=== PATIENT | male | born 1930 | race Caucasian/White ===

== ENCOUNTER → 2017-02-12 | Outpatient (CLI) | payer OTHER ==
[~2017-02-12] MED LIST: AMLO5TAB2 PO; BRIM0.2S2 OP; BRIN1SUS EACHEYE; DICL1GEL26 TOP; LATA0.00 EACHEYE; LORA1TAB12 PO; MEC25T PO; METR1GEL5 TOP; PRAV20TA3 PO; TERA2CAP45 PO; TRAM50TA2 PO; WARF7.5T20 PO
[2017-02-12 09:57] LABS: Urine RBC None Seen /hpf (0 - 3)
[2017-02-12 10:10] LABS: Urine Bilirubin Negative (Negative); Urine Blood Negative /uL (Negative); Urine Color Yellow (Yellow); Urine Glucose Normal (Normal); Urine Ketone Negative (Negative); Urine Nitrite Negative (Negative); Urine Squamous Epithelial Cell FEW /hpf (<5); Urine Urobilinogen Normal (Negative)
[2017-02-12 10:23] LABS: Basophils # (auto) 0 uL; Basophils % (auto) 0.5 % (0.0-2.0); Eosinophils # (auto) 0.3 uL; Eosinophils % (auto) 6.9 % (0.0-7.0); Hematocrit 41.2 % (41.0-53.0); Hemoglobin 13.5 g/dL (13.5-17.5); Lymphocytes # (auto) 1.1 uL; Lymphocytes % (auto) 27.6 % (10.0-50.0); Mean Corpuscular Hemoglobin 30.4 pg (28.0-32.0); Mean Corpuscular Hgb Conc. 32.9 g/dL (32.0-36.0); Mean Corpuscular Volume 92.4 fL (80.0-100.0); Mean Platelet Volume 8.1 fL (7.4-10.4); Monocytes # (auto) 0.3 uL; Monocytes % (auto) 7.5 % (0.0-12.0); Neutrophils # (auto) 2.3 uL; Neutrophils % (auto) 57.5 % (37.0-80.0); Platelet Count (auto) 220 10^3/uL (140-450); Red Cell Distribution Width 14.4 % (11.6-16.0)
[2017-02-12 10:38] LABS: Albumin 3.7 g/dL (3.4-5.0); BUN/Creatinine Ratio 19.6; Bilirubin, Total 0.7 mg/dL (0.2-1.0); Calcium 9.2 mg/dL (8.5-10.1); Potassium 4.3 mmol/L (3.5-5.1); Total Protein 6.9 g/dL (6.4-8.2)
== END | disposition home or self-care (01) ==
LOC: LAB 09:20
PROVIDERS: ATTEND Internal Medicine
DX: E55.9 Vitamin D deficiency, unspecified (principal); Z00.00 Encounter for general adult medical examination without abnormal findings
CPT/HCPCS: 36415; 80053; 80061; 81001; 82306; 83036; 84153; 85025

== ENCOUNTER → 2017-09-30 | Outpatient (CLI) | payer OTHER ==
[~2017-09-30] MED LIST changes: -LATA0.00 EACHEYE; +LATA0.0020 EACHEYE
[2017-09-30 09:26] LABS: Basophils # (auto) 0 uL; Basophils % (auto) 0.6 % (0.0-2.0); Eosinophils # (auto) 0.2 uL; Eosinophils % (auto) 2.2 % (0.0-7.0); Hematocrit 40.6 % (41.0-53.0); Hemoglobin 13.4 g/dL (13.5-17.5); Lymphocytes # (auto) 1.3 uL; Lymphocytes % (auto) 17.7 % (10.0-50.0); Mean Corpuscular Hgb Conc. 33.1 g/dL (32.0-36.0); Mean Corpuscular Volume 93.7 fL (80.0-100.0); Mean Platelet Volume 6.7 fL (6.9-10.8); Monocytes # (auto) 0.6 uL; Monocytes % (auto) 8.5 % (0.0-12.0); Nucleated Red Blood Cells % 0.1 %; Platelet Count (auto) 246 10^3/uL (140-450); Red Cell Distribution Width 13.6 % (11.8-14.3); White Blood Cell 7.1 10^3/uL (4.4-10.8)
[2017-09-30 09:33] LABS: Urine Bilirubin Negative (Negative); Urine Blood Negative /uL (Negative); Urine Color Yellow (Yellow); Urine Glucose Normal (Normal); Urine Ketone Negative (Negative); Urine Nitrite Negative (Negative); Urine RBC 1 /hpf (0 - 3); Urine Squamous Epithelial Cell FEW /hpf (<5); Urine Urobilinogen Normal (Negative); Urine pH 6.5 (5.0-8.0)
[2017-09-30 10:37] LABS: Albumin 3.4 g/dL (3.4-5.0); BUN/Creatinine Ratio 17.8; Bilirubin, Total 0.4 mg/dL (0.2-1.0); Calcium 9.1 mg/dL (8.5-10.1); Potassium 4.1 mmol/L (3.5-5.1); Total Protein 7.1 g/dL (6.4-8.2); Uric Acid 5.9 mg/dL (3.5-7.2)
[2017-10-01 10:10] LABS: Rheumatoid Arthritis Factor <10.0 IU/mL (0.0-13.9)
== END | disposition home or self-care (01) ==
LOC: LAB 09:02
DX: I10 Essential (primary) hypertension (principal); D64.9 Anemia, unspecified; M06.9 Rheumatoid arthritis, unspecified; E03.9 Hypothyroidism, unspecified; I70.0 Atherosclerosis of aorta; E78.00 Pure hypercholesterolemia, unspecified; Z79.899 Other long term (current) drug therapy
CPT/HCPCS: 36415; 80053; 80061; 81001; 84443; 84550; 85025; 85652; 86141; 86200; 86431

== ENCOUNTER → 2017-11-26 | Outpatient (CLI) | payer OTHER ==
[~2017-11-26] MED LIST changes: -BRIN1SUS EACHEYE; +BRIN1SUS RIGHTEYE; +GABA100C9 PO; +TERA5CAP42 PO; +TRAZ50TA2 PO
== END | disposition home or self-care (01) ==
LOC: XYW 11:00
PROVIDERS: ATTEND Physician Assistant
DX: I36.1 Nonrheumatic tricuspid (valve) insufficiency (principal)
CPT/HCPCS: 93306

== ENCOUNTER 2017-12-24 06:17 | Inpatient (IN) | payer OTHER ==
[2017-12-20 14:27] LABS: Urine WBC None Seen /hpf (0 - 3)
[2017-12-20 14:36] LABS: Basophils # (auto) 0 uL; Basophils % (auto) 0.5 % (0.0-2.0); Eosinophils # (auto) 0.3 uL; Hematocrit 40.3 % (41.0-53.0); Hemoglobin 13.3 g/dL (13.5-17.5); Lymphocytes # (auto) 1.4 uL; Lymphocytes % (auto) 24.6 % (10.0-50.0); Mean Corpuscular Hemoglobin 30.7 pg (28.0-32.0); Mean Corpuscular Volume 93.1 fL (80.0-100.0); Monocytes # (auto) 0.6 uL; Neutrophils # (auto) 3.5 uL; Neutrophils % (auto) 59.9 % (37.0-80.0); Nucleated Red Blood Cells % 0.1 %; Platelet Count (auto) 210 10^3/uL (140-450); Red Blood Cells 4.33 10^6/uL (4.5-5.90); Red Cell Distribution Width 14.5 % (11.8-14.3); White Blood Cell 5.8 10^3/uL (4.4-10.8)
[2017-12-20 14:52] LABS: Urine Bacteria NONE SEEN /hpf (None Seen); Urine Blood Negative /uL (Negative); Urine Specific Gravity 1.017 (1.001-1.035)
[2017-12-20 14:54] LABS: INR 1.05 (0.9-1.15); Partial Thromboplastin Time 28.7 sec (22.64-33.71); Prothrombin Time 11.4 sec (9.37-12.3)
[2017-12-20 14:55] LABS: Albumin 3.6 g/dL (3.4-5.0); BUN/Creatinine Ratio 18.2; Bilirubin, Total 0.8 mg/dL (0.2-1.0); Calcium 8.8 mg/dL (8.5-10.1); Potassium 4.3 mmol/L (3.5-5.1); Total Protein 7.2 g/dL (6.4-8.2)
[~2017-12-24] VITALS: Ht 180.3 cm; Wt 90.9 kg
[~2017-12-24 06:17] MED LIST changes: -DICL1GEL26 TOP; -LORA1TAB12 PO; -MEC25T PO; -METR1GEL5 TOP; -PRAV20TA3 PO; -TERA2CAP45 PO
[2017-12-24] MEDS ORDERED: TETRACAINE 1% INJ 2 ML VIAL IJ ONE (07:24)
[2017-12-24] MEDS ORDERED: ceFAZolin 1GM/50ML 100 ML IV ONE (07:26)
[2017-12-24] MEDS ORDERED: MORPHINE SULF(PF) 0.5MG/ML 10ML VIAL ONE (07:28)
[2017-12-24] MEDS ORDERED: fentaNYL CITRATE 100 MCG/2 ML VL ONE (07:28)
[2017-12-24] MEDS ORDERED: DEXAMETHASONE SOD PHOS 10MG/1ML VIAL INJ ONE (07:29)
[2017-12-24] MEDS ORDERED: MIDAZOLAM HCL 1MG/1ML-2 ML VIAL ONE ×2 (07:29→08:00)
[2017-12-24] MEDS ORDERED: PROPOFOL 10 MG/ML 20 ML IV ONE (07:29)
[2017-12-24] MEDS ORDERED: PHENYLEPHRINE HCL 10 MG/ML VL ONE (08:14)
[2017-12-24] MEDS ORDERED: NALBUPHINE HCL 10 MG/1ml INJECTION SUBCUT ONE (08:15)
[2017-12-24] MEDS ORDERED: NALOXONE HCL 0.4 MG/ML VIAL IV PRN (08:15)
[2017-12-24] MEDS ORDERED: LABETALOL HCL 5 MG/ML 4ML SYRINGE IV PRN (08:15)
[2017-12-24] MEDS ORDERED: ePHEDrine SULFATE 50 MG/ML AMP IV PRN (08:15)
[2017-12-24] MEDS ORDERED: diphenhdrAMINE HCL 50 MG/1 ML VL IV PRN (08:15)
[2017-12-24] MEDS ORDERED: hydrALAZINE HCL 20 MG/ML VL IV PRN (08:15)
[2017-12-24] MEDS ORDERED: HYDROmorphone HCL 2 MG/ML VL IV PRN ×2 (08:15→11:00)
[2017-12-24] MEDS ORDERED: DEXAMETHASONE SOD PHOS 10MG/1ML VIAL INJ IV PRN (08:15)
[2017-12-24] MEDS ORDERED: ONDANSETRON HCL 4 MG/2 ML VIAL IV PRN ×2 (08:15→11:00)
[2017-12-24] MEDS ORDERED: LACTATED RINGER'S 1,000 ML IV SCH (10:53)
[2017-12-24] MEDS ORDERED: ACETAMINOPHEN 325 MG TAB PO PRN (11:00)
[2017-12-24 13:00] VITALS: BP 130/75
[2017-12-24] MEDS: SODIUM CHLOR 0.9% PF (SALINE LOCK) 10ML VIAL IV SCH ×2 (14:21→22:00)
[2017-12-24] MEDS: ceFAZolin 1GM/50ML 50 ML IV SCH ×3 (14:21→23:43)
[2017-12-24 15:02] VITALS: BP 130/75
[2017-12-24] MEDS: KETOROLAC TROMETH 30 MG/ML 1ML VIAL IV PRN ×2 (15:58→23:41)
[2017-12-24 17:01] VITALS: BP 135/74
[2017-12-24] MEDS: DOCUSATE SOD 100 MG CAP PO SCH (21:35)
[2017-12-24] MEDS: oxyCODONE ER 10 MG TAB PO SCH (21:36)
[2017-12-24 22:00] VITALS: BP 113/64
[2017-12-25] MEDS: SODIUM CHLOR 0.9% PF (SALINE LOCK) 10ML VIAL IV SCH ×3 (05:52→22:06)
[2017-12-25 06:00] VITALS: BP 131/70
[2017-12-25] MEDS: KETOROLAC TROMETH 30 MG/ML 1ML VIAL IV PRN ×3 (08:14→20:13)
[2017-12-25 08:30] VITALS: BP 131/66
[2017-12-25] MEDS: oxyCODONE ER 10 MG TAB PO SCH ×2 (09:53→21:57)
[2017-12-25] MEDS: DOCUSATE SOD 100 MG CAP PO SCH ×2 (09:53→21:55)
[2017-12-25 12:30] VITALS: BP 144/88
[2017-12-25 16:51] VITALS: BP 152/76
[2017-12-25] MEDS ORDERED: WARFARIN SODIUM 2.5 MG TAB PO ONE (17:00)
[2017-12-25] MEDS: ENOXAPARIN SOD 40 MG/0.4 ML SYRINGE SC SCH (17:30)
[2017-12-25] MEDS: TEMAZEPAM 15 MG CAP PO PRN (21:55)
[2017-12-25] MEDS: TERAZOSIN HCL 5 MG CAP PO SCH (21:56)
[2017-12-25] MEDS: traZODone HCL 50 MG TAB PO SCH (21:57)
[2017-12-25] MEDS ORDERED: amLODIPine BESYLATE 5 MG TAB PO ONE (22:00)
[2017-12-25 22:53] VITALS: BP 157/67
[2017-12-25] MEDS ORDERED: LACTULOSE 20Gm/30ML SOLN PO ONE (23:45)
[2017-12-26 05:00] VITALS: BP 153/75
[2017-12-26 07:04] LABS: Hematocrit 35.5 % (41.0-53.0); Hemoglobin 11.7 g/dL (13.5-17.5)
[2017-12-26 07:15] LABS: INR 0.96 (0.9-1.15); Partial Thromboplastin Time 26.9 sec (22.64-33.71); Prothrombin Time 10.5 sec (9.37-12.3)
[2017-12-26 09:00] VITALS: BP 142/71
[2017-12-26] MEDS ORDERED: ENOXAPARIN SOD 40 MG/0.4 ML SYRINGE SC SCH (10:00)
[2017-12-26] MEDS: DOCUSATE SOD 100 MG CAP PO SCH ×2 (10:16→22:05)
[2017-12-26] MEDS: amLODIPine BESYLATE 5 MG TAB PO SCH (10:16)
[2017-12-26] MEDS: ENOXAPARIN SOD 40 MG/0.4 ML SYRINGE SC SCH (10:21)
[2017-12-26] MEDS: oxyCODONE ER 10 MG TAB PO SCH ×2 (10:21→22:07)
[2017-12-26 13:00] VITALS: BP 144/70
[2017-12-26 17:00] VITALS: BP 155/80
[2017-12-26] MEDS ORDERED: WARFARIN SODIUM 2.5 MG TAB PO ONE (17:00)
[2017-12-26] MEDS: SODIUM CHLOR 0.9% PF (SALINE LOCK) 10ML VIAL IV SCH (17:27)
[2017-12-26 22:00] VITALS: BP 158/80
[2017-12-26] MEDS: traZODone HCL 50 MG TAB PO SCH (22:05)
[2017-12-26] MEDS: TERAZOSIN HCL 5 MG CAP PO SCH (22:07)
[2017-12-26] MEDS: TEMAZEPAM 15 MG CAP PO PRN (22:08)
[2017-12-27 05:00] VITALS: BP 150/77
[2017-12-27 07:02] LABS: Basophils # (auto) 0 uL; Basophils % (auto) 0.4 % (0.0-2.0); Eosinophils # (auto) 0.1 uL; Eosinophils % (auto) 2.6 % (0.0-7.0); Hematocrit 35.3 % (41.0-53.0); Hemoglobin 11.7 g/dL (13.5-17.5); Lymphocytes # (auto) 1.1 uL; Lymphocytes % (auto) 19.7 % (10.0-50.0); Mean Corpuscular Hemoglobin 30.7 pg (28.0-32.0); Mean Corpuscular Hgb Conc. 33.1 g/dL (32.0-36.0); Mean Corpuscular Volume 92.8 fL (80.0-100.0); Monocytes # (auto) 0.7 uL; Monocytes % (auto) 13.3 % (0.0-12.0); Neutrophils # (auto) 3.6 uL; Nucleated Red Blood Cells % 0.1 %; Platelet Count (auto) 189 10^3/uL (140-450); Red Cell Distribution Width 14.4 % (11.8-14.3); White Blood Cell 5.6 10^3/uL (4.4-10.8)
[2017-12-27 08:00] VITALS: BP 124/69
[2017-12-27 08:31] LABS: Hematocrit 36.9 % (41.0-53.0); Hemoglobin 12.4 g/dL (13.5-17.5)
[2017-12-27] MEDS: SODIUM CHLOR 0.9% PF (SALINE LOCK) 10ML VIAL IV SCH ×4 (08:47→21:57)
[2017-12-27] MEDS: amLODIPine BESYLATE 5 MG TAB PO SCH (10:04)
[2017-12-27] MEDS: DOCUSATE SOD 100 MG CAP PO SCH ×2 (10:04→21:57)
[2017-12-27] MEDS: oxyCODONE ER 10 MG TAB PO SCH ×2 (10:05→21:57)
[2017-12-27] MEDS: ENOXAPARIN SOD 40 MG/0.4 ML SYRINGE SC SCH (10:05)
[2017-12-27 11:55] LABS: INR 0.96 (0.9-1.15); Prothrombin Time 10.5 sec (9.37-12.3)
[2017-12-27 13:00] VITALS: BP 145/74
[2017-12-27] MEDS: HYDROcodone-ACET 10/325MG TAB PO PRN (16:21)
[2017-12-27 16:51] VITALS: BP 148/64
[2017-12-27] MEDS ORDERED: WARFARIN SODIUM 2.5 MG TAB PO ONE (17:00)
[2017-12-27] MEDS: traZODone HCL 50 MG TAB PO SCH (21:56)
[2017-12-27] MEDS: TERAZOSIN HCL 5 MG CAP PO SCH (21:56)
[2017-12-27 22:42] VITALS: BP 115/56
[2017-12-28] VITALS (7 sets, daily range): BP systolic 129–158; BP diastolic 60–80
[2017-12-28 05:56] LABS: Hematocrit 34.3 % (41.0-53.0); Hemoglobin 11.6 g/dL (13.5-17.5)
[2017-12-28] MEDS: SODIUM CHLOR 0.9% PF (SALINE LOCK) 10ML VIAL IV SCH ×3 (06:00→22:30)
[2017-12-28 06:05] LABS: INR 1.03 (0.9-1.15); Partial Thromboplastin Time 27.2 sec (22.64-33.71); Prothrombin Time 11.2 sec (9.37-12.3)
[2017-12-28] MEDS: HYDROcodone-ACET 10/325MG TAB PO PRN ×2 (08:35→17:42)
[2017-12-28] MEDS: DOCUSATE SOD 100 MG CAP PO SCH ×2 (10:00→22:00)
[2017-12-28] MEDS ORDERED: MAGNESIUM CITRATE SOLUTION 300 ML BTL PO ONE (10:00)
[2017-12-28] MEDS: amLODIPine BESYLATE 5 MG TAB PO SCH (10:30)
[2017-12-28] MEDS: oxyCODONE ER 10 MG TAB PO SCH ×2 (10:30→22:30)
[2017-12-28] MEDS: ENOXAPARIN SOD 40 MG/0.4 ML SYRINGE SC SCH (10:30)
[2017-12-28] MEDS ORDERED: FLEET ENEMA(ADULT) 135 ML PR PRN (15:00)
[2017-12-28] MEDS ORDERED: WARFARIN SODIUM 10 MG TAB PO ONE (17:00)
[2017-12-28] MEDS: traZODone HCL 50 MG TAB PO SCH (22:30)
[2017-12-28] MEDS: TERAZOSIN HCL 5 MG CAP PO SCH (22:36)
[2017-12-29] MEDS: SODIUM CHLOR 0.9% PF (SALINE LOCK) 10ML VIAL IV SCH (05:26)
[2017-12-29] MEDS: HYDROcodone-ACET 10/325MG TAB PO PRN (05:26)
[2017-12-29 05:29] VITALS: BP 149/79
[2017-12-29 05:33] LABS: Hematocrit 35.6 % (41.0-53.0); Hemoglobin 11.7 g/dL (13.5-17.5)
[2017-12-29 05:51] LABS: INR 1.15 (0.9-1.15); Partial Thromboplastin Time 28.9 sec (22.64-33.71); Prothrombin Time 12.5 sec (9.37-12.3)
[2017-12-29 08:28] VITALS: BP 163/71
[2017-12-29 09:00] VITALS: BP 163/71
[2017-12-29] MEDS: oxyCODONE ER 10 MG TAB PO SCH (09:28)
[2017-12-29] MEDS: ENOXAPARIN SOD 40 MG/0.4 ML SYRINGE SC SCH (09:28)
[2017-12-29] MEDS: DOCUSATE SOD 100 MG CAP PO SCH (09:29)
[2017-12-29] MEDS: amLODIPine BESYLATE 5 MG TAB PO SCH (09:29)
[2017-12-29] MEDS ORDERED: WARFARIN SODIUM 10 MG TAB PO ONE (17:00)
== END 2017-12-29 11:44 | disposition home or self-care (01) | DRG 554 ==
LOC: SUR 06:17 → TELE-WESTW 06:18 → WEST WING 19:44
PROVIDERS: ADMIT Orthopaedic Surgery; ATTEND Internal Medicine
PROC: 0T9B70Z Drainage of Bladder with Drainage Device, Via Natural or Artificial Opening (ICD-10-PCS; principal; 2017-12-24 07:45)
DX: M17.11 Unilateral primary osteoarthritis, right knee (principal); D68.59 Other primary thrombophilia; I48.91 Unspecified atrial fibrillation; R31.0 Gross hematuria; M21.00 Valgus deformity, not elsewhere classified, unspecified site; N40.0 Benign prostatic hyperplasia without lower urinary tract symptoms; I25.10 Atherosclerotic heart disease of native coronary artery without angina pectoris; Z96.651 Presence of right artificial knee joint; I10 Essential (primary) hypertension; Z79.01 Long term (current) use of anticoagulants; Z95.0 Presence of cardiac pacemaker; Z95.1 Presence of aortocoronary bypass graft
CPT/HCPCS: 36415; 73562; 80053; 81001; 85014; 85018; 85025; 85610; 85730; 86850; 86900; 86901; 97116; 97163; 97530; J0690; J1100; J1885; J2250; J2704

== ENCOUNTER 2018-02-02 10:11 | Emergency (ER) | payer OTHER ==
[~2018-02-02] VITALS: Ht 180.3 cm; Wt 86.2 kg
[2018-02-02 10:50] LABS: Basophils # (auto) 0 uL; Basophils % (auto) 0.9 % (0.0-2.0); Eosinophils # (auto) 0.2 uL; Eosinophils % (auto) 5.1 % (0.0-7.0); Hematocrit 37.1 % (41.0-53.0); Hemoglobin 12.2 g/dL (13.5-17.5); Lymphocytes # (auto) 1.1 uL; Mean Corpuscular Hemoglobin 30.7 pg (28.0-32.0); Mean Corpuscular Hgb Conc. 32.8 g/dL (32.0-36.0); Mean Corpuscular Volume 93.4 fL (80.0-100.0); Monocytes # (auto) 0.5 uL; Neutrophils # (auto) 2.8 uL; Nucleated Red Blood Cells % 0.3 %; Platelet Count (auto) 177 10^3/uL (140-450); Red Blood Cells 3.97 10^6/uL (4.5-5.90); Red Cell Distribution Width 14.4 % (11.8-14.3); White Blood Cell 4.6 10^3/uL (4.4-10.8)
[2018-02-02 10:56] VITALS: BP 160/90
[2018-02-02 11:16] LABS: Alanine Aminotransferase 19 U/L (16-61); Albumin 3.4 g/dL (3.4-5.0); Alkaline Phosphatase 80 U/L (45-117); Anion Gap 3 (5-15); Aspartate Aminotransferase 18 U/L (15-37); BUN/Creatinine Ratio 14.6; Bilirubin, Total 0.5 mg/dL (0.2-1.0); Blood Urea Nitrogen 15 mg/dL (7-18); Calcium 8.3 mg/dL (8.5-10.1); Carbon Dioxide 27 mmol/L (21-32); Chloride 112 mmol/L (98-107); GFR African American 88 mL/min; GFR Non-African American 73 mL/min; Glucose 100 mg/dL (74-106); Sodium 142 mmol/L (136-145); Total Protein 6.6 g/dL (6.4-8.2)
== END 2018-02-02 12:53 | disposition home or self-care (01) ==
LOC: EDBD 10:11 → ER 10:11
DX: I48.91 Unspecified atrial fibrillation (principal); I10 Essential (primary) hypertension; Z95.1 Presence of aortocoronary bypass graft; Z95.0 Presence of cardiac pacemaker; Z79.899 Other long term (current) drug therapy
CPT/HCPCS: 36415; 80053; 83880; 84484; 85025; 93005

== ENCOUNTER → 2018-02-27 | Outpatient (CLI) | payer OTHER ==
[2018-02-27 09:30] LABS: Basophils # (auto) 0 uL; Basophils % (auto) 0.9 % (0.0-2.0); Eosinophils # (auto) 0.2 uL; Eosinophils % (auto) 5.3 % (0.0-7.0); Hematocrit 38.9 % (41.0-53.0); Hemoglobin 12.8 g/dL (13.5-17.5); Lymphocytes # (auto) 1.3 uL; Lymphocytes % (auto) 28.9 % (10.0-50.0); Mean Corpuscular Hemoglobin 30.3 pg (28.0-32.0); Mean Corpuscular Hgb Conc. 32.9 g/dL (32.0-36.0); Mean Corpuscular Volume 92.2 fL (80.0-100.0); Monocytes # (auto) 0.5 uL; Monocytes % (auto) 11.3 % (0.0-12.0); Neutrophils # (auto) 2.3 uL; Neutrophils % (auto) 53.6 % (37.0-80.0); Nucleated Red Blood Cells % 0.1 %; Platelet Count (auto) 198 10^3/uL (140-450); Red Blood Cells 4.22 10^6/uL (4.5-5.90); Red Cell Distribution Width 14.8 % (11.8-14.3); White Blood Cell 4.4 10^3/uL (4.4-10.8)
[2018-02-27 09:56] LABS: Albumin 3.5 g/dL (3.4-5.0); BUN/Creatinine Ratio 14.3; Bilirubin, Total 0.7 mg/dL (0.2-1.0); Total Protein 6.7 g/dL (6.4-8.2); Uric Acid 7.4 mg/dL (3.5-7.2)
== END | disposition home or self-care (01) ==
LOC: LAB 09:10
PROVIDERS: ATTEND Physician Assistant
DX: I10 Essential (primary) hypertension (principal); M10.9 Gout, unspecified; D64.9 Anemia, unspecified; E78.2 Mixed hyperlipidemia; I48.91 Unspecified atrial fibrillation; E78.00 Pure hypercholesterolemia, unspecified; Z95.0 Presence of cardiac pacemaker; Z79.01 Long term (current) use of anticoagulants; Z95.1 Presence of aortocoronary bypass graft
CPT/HCPCS: 36415; 80053; 80061; 84550; 85025

== ENCOUNTER 2018-04-24 07:08 | Day surgery (SDC) | payer OTHER ==
[2018-04-22 15:14] LABS: Basophils # (auto) 0 uL; Basophils % (auto) 0.6 % (0.0-2.0); Eosinophils # (auto) 0.2 uL; Eosinophils % (auto) 3.6 % (0.0-7.0); Hematocrit 40.8 % (41.0-53.0); Hemoglobin 13.6 g/dL (13.5-17.5); Lymphocytes # (auto) 1.3 uL; Lymphocytes % (auto) 27.1 % (10.0-50.0); Mean Corpuscular Hemoglobin 29.9 pg (28.0-32.0); Mean Corpuscular Hgb Conc. 33.3 g/dL (32.0-36.0); Mean Corpuscular Volume 89.9 fL (80.0-100.0); Monocytes # (auto) 0.5 uL; Neutrophils # (auto) 2.9 uL; Neutrophils % (auto) 58.7 % (37.0-80.0); Nucleated Red Blood Cells % 0.2 %; Platelet Count (auto) 188 10^3/uL (140-450); Red Blood Cells 4.54 10^6/uL (4.5-5.90); Red Cell Distribution Width 14.9 % (11.8-14.3); White Blood Cell 4.9 10^3/uL (4.4-10.8)
[2018-04-22 15:18] LABS: Urine Bacteria NONE SEEN /hpf (None Seen); Urine Blood Negative /uL (Negative); Urine Specific Gravity 1.015 (1.001-1.035); Urine WBC <1 /hpf (0 - 3)
[2018-04-22 15:24] LABS: INR 1.02 (0.9-1.15); Partial Thromboplastin Time 27.6 sec (23.78-33.04); Prothrombin Time 10.9 sec (9.27-12.13)
[2018-04-22 15:32] LABS: Albumin 3.8 g/dL (3.4-5.0); BUN/Creatinine Ratio 16.2; Bilirubin, Total 0.8 mg/dL (0.2-1.0); Potassium 4.4 mmol/L (3.5-5.1); Total Protein 7.3 g/dL (6.4-8.2)
[~2018-04-24] VITALS: Ht 30.5 cm; Wt 0.5 kg
[~2018-04-24 07:08] MED LIST changes: -AMLO5TAB2 PO; +BRIM0.2S2 EACHEYE; -BRIM0.2S2 OP; +METO25TA62 PO
[2018-04-24] MEDS ORDERED: ceFAZolin 1GM/50ML 50 ML IV ONE (07:38)
[2018-04-24] MEDS ORDERED: SODIUM CHLORIDE LOCK 10 ML ONE (09:35)
[2018-04-24] MEDS ORDERED: PROPOFOL 10 MG/ML 20 ML IV ONE (09:35)
[2018-04-24] MEDS ORDERED: fentaNYL CITRATE 100 MCG/2 ML VL ONE (09:35)
[2018-04-24] MEDS ORDERED: ONDANSETRON HCL 4 MG/2 ML VIAL ONE (09:35)
[2018-04-24] MEDS ORDERED: ROCURONIUM 10MG/ML 10ML VIAL IV ONE (09:35)
[2018-04-24] MEDS ORDERED: MEPERIDINE HCL (50 MG/ML) 1 ML VIAL ONE (09:35)
[2018-04-24] MEDS ORDERED: MIDAZOLAM HCL 1MG/1ML-2 ML VIAL ONE (09:35)
[2018-04-24] MEDS ORDERED: METOCLOPRAMIDE HCL 5MG/ml INJ 2ml VIAL IV ONE (10:30)
[2018-04-24] MEDS ORDERED: fentaNYL CITRATE 100 MCG/2 ML VL IV ONE (11:00)
[2018-04-24] MEDS ORDERED: LABETALOL HCL 5 MG/ML ML 20ML VIAL IV ONE ×3 (11:24→12:15)
[2018-04-24] MEDS ORDERED: LIDOCAINE 2% JELLY 11ml (GLYDO) ONE (11:37)
[2018-04-24 12:54] VITALS: BP 154/92
== END 2018-04-24 13:04 | disposition home or self-care (01) ==
LOC: SUR 07:08
PROVIDERS: ATTEND Urology
DX: N40.1 Benign prostatic hyperplasia with lower urinary tract symptoms (principal); M19.90 Unspecified osteoarthritis, unspecified site; I25.10 Atherosclerotic heart disease of native coronary artery without angina pectoris; I25.2 Old myocardial infarction; J44.9 Chronic obstructive pulmonary disease, unspecified; I49.9 Cardiac arrhythmia, unspecified; E78.5 Hyperlipidemia, unspecified; I12.9 Hypertensive chronic kidney disease with stage 1 through stage 4 chronic kidney disease, or unspecified chronic kidney disease; N18.2 Chronic kidney disease, stage 2 (mild); M10.9 Gout, unspecified; E66.9 Obesity, unspecified; I48.91 Unspecified atrial fibrillation; Z95.0 Presence of cardiac pacemaker; Z95.1 Presence of aortocoronary bypass graft; Z87.891 Personal history of nicotine dependence
CPT/HCPCS: 36415; 52601; 80053; 81001; 85025; 85610; 85730; 88305; J0690; J2175; J2250; J2405; J2704; J3010

== ENCOUNTER → 2018-10-01 | Outpatient (CLI) | payer OTHER | END | disposition home or self-care (01) | LOC: LAB 11:36 | PROVIDERS: ATTEND Physician Assistant | DX: E55.9 Vitamin D deficiency, unspecified (principal); N40.1 Benign prostatic hyperplasia with lower urinary tract symptoms; I48.2 Chronic atrial fibrillation | CPT/HCPCS: 36415; 82306; 84153; 84550 ==

== ENCOUNTER → 2018-12-18 | Outpatient (CLI) | payer OTHER | END | disposition home or self-care (01) | LOC: LAB 16:14 | PROVIDERS: ATTEND Urology | DX: N39.0 Urinary tract infection, site not specified (principal) | CPT/HCPCS: 87086 ==

== ENCOUNTER → 2019-03-04 | Outpatient (CLI) | payer OTHER | END | disposition home or self-care (01) | LOC: XYW 09:45 | PROVIDERS: ATTEND Internal Medicine | DX: Z01.810 Encounter for preprocedural cardiovascular examination (principal); I08.8 Other rheumatic multiple valve diseases; I48.91 Unspecified atrial fibrillation; I11.9 Hypertensive heart disease without heart failure | CPT/HCPCS: 93306 ==

== ENCOUNTER → 2019-03-05 | Outpatient (CLI) | payer OTHER ==
[~2019-03-05] VITALS: Ht 180.3 cm; Wt 54.0 kg
[~2019-03-05] MED LIST changes: +ADENOSINE 45 MG in GIVE UN-DILUTED 0 ML IV STA
== END | disposition home or self-care (01) ==
LOC: XY 07:48
PROVIDERS: ATTEND Internal Medicine
DX: Z01.810 Encounter for preprocedural cardiovascular examination (principal); I25.10 Atherosclerotic heart disease of native coronary artery without angina pectoris; I10 Essential (primary) hypertension
CPT/HCPCS: 78452; 93017; A9500; J0153

== ENCOUNTER → 2019-04-06 | Day surgery (SDC) | payer OTHER ==
[2019-04-02 11:34] LABS: Basophils # (auto) 0 uL; Basophils % (auto) 0.8 % (0.0-2.0); Eosinophils # (auto) 0.2 uL; Hematocrit 44.7 % (41.0-53.0); Hemoglobin 14.8 g/dL (13.5-17.5); Lymphocytes # (auto) 1.3 uL; Lymphocytes % (auto) 26.6 % (10.0-50.0); Mean Corpuscular Hemoglobin 31.4 pg (28.0-32.0); Mean Corpuscular Hgb Conc. 33.1 g/dL (32.0-36.0); Mean Corpuscular Volume 94.8 fL (80.0-100.0); Monocytes # (auto) 0.4 uL; Monocytes % (auto) 8.1 % (0.0-12.0); Neutrophils % (auto) 60.5 % (37.0-80.0); Platelet Count (auto) 216 10^3/uL (140-450); Red Blood Cells 4.71 10^6/uL (4.5-5.90); Red Cell Distribution Width 14.5 % (11.8-14.3); White Blood Cell 4.9 10^3/uL (4.4-10.8)
[2019-04-02 11:48] LABS: INR 0.97 (0.9-1.15); Partial Thromboplastin Time 25.7 sec (23.64-32.05); Urine Bacteria NONE SEEN /hpf (None Seen); Urine Blood Negative /uL (Negative); Urine Specific Gravity 1.013 (1.001-1.035); Urine WBC 4 /hpf (0 - 3)
[2019-04-02 11:58] LABS: Albumin 3.8 g/dL (3.4-5.0); BUN/Creatinine Ratio 12.9; Potassium 4.8 mmol/L (3.5-5.1)
[2019-04-02 12:01] LABS: Total Protein 7.3 g/dL (6.4-8.2)
[~2019-04-06] VITALS: Ht 182.9 cm; Wt 86.2 kg
[~2019-04-06] MED LIST changes: -ADENOSINE 45 MG in GIVE UN-DILUTED 0 ML IV STA; +ALLO100T PO; +AMLO5TAB13 PO; -BRIM0.2S2 EACHEYE; -GABA100C9 PO; +TEMA15CA PO; -TRAZ50TA2 PO
== END | disposition home or self-care (01) ==
LOC: SUR 07:15
PROVIDERS: ATTEND Urology
DX: N32.81 Overactive bladder (principal); I70.0 Atherosclerosis of aorta; D64.9 Anemia, unspecified; M17.9 Osteoarthritis of knee, unspecified; Z95.0 Presence of cardiac pacemaker; I12.9 Hypertensive chronic kidney disease with stage 1 through stage 4 chronic kidney disease, or unspecified chronic kidney disease; N18.2 Chronic kidney disease, stage 2 (mild); E78.5 Hyperlipidemia, unspecified; I48.91 Unspecified atrial fibrillation; Z95.1 Presence of aortocoronary bypass graft; I25.10 Atherosclerotic heart disease of native coronary artery without angina pectoris; E78.00 Pure hypercholesterolemia, unspecified; Z79.01 Long term (current) use of anticoagulants; Z79.899 Other long term (current) drug therapy; Z53.8 Procedure and treatment not carried out for other reasons
CPT/HCPCS: 36415; 80053; 81001; 85025; 85610; 85730

== ENCOUNTER → 2021-02-01 | Outpatient (CLI) | payer OTHER ==
[~2021-02-01] MED LIST changes: +AMLO-489 PO; -AMLO5TAB13 PO; +BRIM0.2S2 OP; +BRIN1SUS OP; +LATA0.0020 OP; -METO25TA62 PO; +METO25TA93 PO; +WARF7.5T2 OR
[2021-02-01 16:09] LABS: Basophils # (auto) 0 10 ^3/uL (0-0.2); Eosinophils # (auto) 0.2 10 ^3/uL (0-0.8); Eosinophils % (auto) 5.2 % (0.0-7.0); Hematocrit 40.3 % (41.0-53.0); Hemoglobin 13.5 g/dL (13.5-17.5); Lymphocytes # (auto) 1.4 10 ^3/uL (0.4-5.4); Lymphocytes % (auto) 31.4 % (10.0-50.0); Mean Corpuscular Hemoglobin 31.3 pg (28.0-32.0); Mean Corpuscular Hgb Conc. 33.5 g/dL (32.0-36.0); Mean Corpuscular Volume 93.4 fL (80.0-100.0); Monocytes # (auto) 0.4 10 ^3/uL (0-1.3); Monocytes % (auto) 9.3 % (0.0-12.0); Neutrophils # (auto) 2.4 10 ^3/uL (1.6-8.6); Neutrophils % (auto) 53.1 % (37.0-80.0); Nucleated Red Blood Cells % 0.1 %; Platelet Count (auto) 193 10^3/uL (140-450); Red Blood Cells 4.32 10^6/uL (4.5-5.90); White Blood Cell 4.5 10^3/uL (4.4-10.8)
[2021-02-01 16:39] LABS: Calcium 8.8 mg/dL (8.5-10.1); Potassium 4.4 mmol/L (3.5-5.1)
[2021-02-01 16:43] LABS: Albumin 3.8 g/dL (3.4-5.0); BUN/Creatinine Ratio 18.5
[2021-02-01 16:45] LABS: Bilirubin, Total 0.7 mg/dL (0.2-1.0); Total Protein 7.2 g/dL (6.4-8.2)
== END | disposition home or self-care (01) ==
LOC: LAB 15:50
PROVIDERS: ATTEND Nurse Practitioner Family
DX: R22.41 Localized swelling, mass and lump, right lower limb (principal)
CPT/HCPCS: 36415; 80053; 83880; 85025

== ENCOUNTER → 2021-02-07 | Outpatient (CLI) | payer OTHER ==
[2021-02-07 13:12] LABS: Albumin 3.5 g/dL (3.4-5.0)
[2021-02-07 13:16] LABS: Bilirubin, Direct 0.2 mg/dL (0-0.2); Bilirubin, Total 0.7 mg/dL (0.2-1.0); Total Protein 6.5 g/dL (6.4-8.2)
== END | disposition home or self-care (01) ==
LOC: LAB 11:55
PROVIDERS: ATTEND Physician Assistant
DX: R94.5 Abnormal results of liver function studies (principal)
CPT/HCPCS: 36415; 80076

== ENCOUNTER → 2021-05-02 | Outpatient (CLI) | payer OTHER ==
[2021-05-02 09:25] LABS: Basophils # (auto) 0 10 ^3/uL (0-0.2); Basophils % (auto) 0.9 % (0.0-2.0); Eosinophils # (auto) 0.2 10 ^3/uL (0-0.8); Eosinophils % (auto) 5.2 % (0.0-7.0); Hematocrit 39.3 % (41.0-53.0); Hemoglobin 13.5 g/dL (13.5-17.5); Lymphocytes # (auto) 1.4 10 ^3/uL (0.4-5.4); Lymphocytes % (auto) 31.7 % (10.0-50.0); Mean Corpuscular Hemoglobin 31.8 pg (28.0-32.0); Mean Corpuscular Hgb Conc. 34.3 g/dL (32.0-36.0); Mean Corpuscular Volume 92.8 fL (80.0-100.0); Monocytes # (auto) 0.5 10 ^3/uL (0-1.3); Monocytes % (auto) 11.5 % (0.0-12.0); Neutrophils # (auto) 2.2 10 ^3/uL (1.6-8.6); Neutrophils % (auto) 50.7 % (37.0-80.0); Platelet Count (auto) 194 10^3/uL (140-450); Red Blood Cells 4.23 10^6/uL (4.5-5.90); Red Cell Distribution Width 14.5 % (11.8-14.3); White Blood Cell 4.4 10^3/uL (4.4-10.8)
[2021-05-02 09:43] LABS: INR 1.03 (0.9-1.15); Partial Thromboplastin Time 26.3 sec (23.0-31.2)
[2021-05-02 09:50] LABS: Calcium 8.9 mg/dL (8.5-10.1); Potassium 4.1 mmol/L (3.5-5.1)
[2021-05-02 09:55] LABS: Albumin 3.7 g/dL (3.4-5.0); BUN/Creatinine Ratio 20.8; Total Protein 6.4 g/dL (6.4-8.2)
== END | disposition home or self-care (01) ==
LOC: LAB 08:56
PROVIDERS: ATTEND Internal Medicine
DX: Z01.812 Encounter for preprocedural laboratory examination (principal)
CPT/HCPCS: 36415; 80053; 85025; 85049; 85610; 85730

== ENCOUNTER 2021-05-03 07:01 | Day surgery (SDC) | payer OTHER ==
[~2021-05-03] VITALS: Ht 182.9 cm; Wt 83.9 kg
[~2021-05-03 07:01] MED LIST changes: -BRIM0.2S2 OP; -BRIN1SUS OP; -BRIN1SUS RIGHTEYE; -LATA0.0020 EACHEYE; -LATA0.0020 OP; -TERA5CAP42 PO; -WARF7.5T2 OR
[2021-05-03] MEDS ORDERED: VANCOMYCIN 1GM/250ML 0 ML IV ONE (08:13)
[2021-05-03] MEDS ORDERED: VANCOMYCIN 1GM/250ML 250 ML IV ONE (11:32)
[2021-05-03] MEDS ORDERED: LIDOCAINE 2%HCL (LOCAL ANESTH.) INJ 20ML MDV ONE (11:32)
[2021-05-03] MEDS ORDERED: VANCOMYCIN HCL 1000 MG VL ONE (11:33)
[2021-05-03] MEDS ORDERED: IODIXANOL 320MG/ML 100ML BTL IV ONE (11:52)
[2021-05-03] MEDS ORDERED: HYDROcodone-ACET 5/325MG TAB PO PRN (13:00)
[2021-05-03] MEDS ORDERED: ACETAMINOPHEN 325 MG TAB PO PRN (13:00)
== END 2021-05-03 13:43 | disposition home or self-care (01) ==
LOC: CATH 07:01
PROVIDERS: ATTEND Internal Medicine
DX: Z45.010 Encounter for checking and testing of cardiac pacemaker pulse generator [battery] (principal); I49.5 Sick sinus syndrome; I10 Essential (primary) hypertension; I25.810 Atherosclerosis of coronary artery bypass graft(s) without angina pectoris; Z20.822 Contact with and (suspected) exposure to COVID-19; Z98.890 Other specified postprocedural states; Z87.891 Personal history of nicotine dependence; Z79.899 Other long term (current) drug therapy; Z85.46 Personal history of malignant neoplasm of prostate
CPT/HCPCS: 33206; C1786; J3370; J7030; Q9967; U0003; 99152; 99153

== ENCOUNTER → 2021-10-18 | Outpatient (CLI) | payer OTHER, MEDICARE ==
[2021-10-18 14:35] LABS: BUN/Creatinine Ratio 15.5; Calcium 8.6 mg/dL (8.5-10.1); Potassium 4.2 mmol/L (3.5-5.1)
== END | disposition home or self-care (01) ==
LOC: LAB 13:16
PROVIDERS: ATTEND Internal Medicine
DX: I10 Essential (primary) hypertension (principal)
CPT/HCPCS: 36415; 80048

== ENCOUNTER → 2021-10-19 | Outpatient (CLI) | payer OTHER, MEDICARE ==
[~2021-10-19] MED LIST changes: +IOHEXOL 350 MG/ML 100ML IJ ONE
== END | disposition home or self-care (01) ==
LOC: CT 08:47
PROVIDERS: ATTEND Internal Medicine
DX: K80.20 Calculus of gallbladder without cholecystitis without obstruction (principal); N40.0 Benign prostatic hyperplasia without lower urinary tract symptoms; I33.9 Acute and subacute endocarditis, unspecified; M79.89 Other specified soft tissue disorders; I51.7 Cardiomegaly; D73.89 Other diseases of spleen; I77.811 Abdominal aortic ectasia; I70.90 Unspecified atherosclerosis; M85.80 Other specified disorders of bone density and structure, unspecified site; J98.11 Atelectasis; J98.4 Other disorders of lung; I87.2 Venous insufficiency (chronic) (peripheral); R60.9 Edema, unspecified; Z45.018 Encounter for adjustment and management of other part of cardiac pacemaker
CPT/HCPCS: 74175; Q9967